=== PATIENT | female | born 1940 | race Caucasian/White ===

== ENCOUNTER 2020-08-20 12:27 | Inpatient (IN) | payer MEDICARE ==
[~2020-08-20] VITALS: Ht 160 cm; Wt 77.6 kg
--- NOTE | 2020-08-20 12:27 | NUR ---
ANICETO ROBLES FROM THE [facility] C/O SI " PER REPORT PT STATED SHE WANTS TO KILL HER SELF" PT ON 5150 HOLD BY [employer]. PT IS AAOX3, NOT IN RESPIRATORY DISTRESS, V/S STABLE, KEPT RESTED AND COMFORTABLE. SITTER AT BEDSIDE. WILL CONTINUE TO MONITOR.
--- NOTE | 2020-08-20 12:49 | NUR ---
PT SEEN AND EXAMINED BY .
--- NOTE | 2020-08-20 12:55 | NUR ---
ER PHLEB AT BEDSIDE FOR BLOOD DRAW.
[2020-08-20 13:08] LABS: BASOPHILS # (AUTO) 0.1 /CMM (0.0-0.2); BASOPHILS % (AUTO) 0.9 % (0.0-2.0); EOSINOPHILS % (AUTO) 2.8 % (0.0-6.0); HEMATOCRIT 39 % (33-45); HEMOGLOBIN 12.8 g/dL (11.5-14.8); LYMPHOCYTES # (AUTO) 1.8 /CMM (0.8-4.8); LYMPHOCYTES % (AUTO) 27.4 % (20.0-44.0); MEAN CORPUSCULAR HGB CONC 33 g/dl (31.0-36.0); MEAN CORPUSCULAR VOLUME 94 fL (82-100); MONOCYTES # (AUTO) 0.4 /CMM (0.1-1.30); MONOCYTES % (AUTO) 6.6 % (2.0-12.0); NEUTROPHILS # (AUTO) 4.2 /CMM (1.8-8.9); NEUTROPHILS % (AUTO) 62.3 % (43.0-81.0); PLATELET COUNT (AUTO) 278 /CMM (150-450); RED BLOOD CELL COUNT(AUTO) 4.13 MIL/uL (4.0-5.2); WHITE BLOOD COUNT (AUTO) 6.7 K/uL (4.3-11.0)
--- NOTE | 2020-08-20 13:10 | NUR ---
INSURANCE CLEARED BY [facility] FOR [facility] ADMISSION
[2020-08-20 13:15] LABS: CALCIUM, SERUM 8.8 mg/dL (8.5-10.1); CARBON DIOXIDE 30 mmol/L (21-32); CHLORIDE 105 mmol/L (98-107); CREATININE 0.7 mg/dL (0.6-1.3); GLUCOSE 104 mg/dL (74-106); POTASSIUM 3.8 mmol/L (3.5-5.1); SODIUM SERUM 141 mmol/L (136-145); UREA NITROGEN, BLOOD 14 mg/dL (7-18)
[2020-08-20 13:21] LABS: ACETAMINOPHEN 0 ug/ml (10-30); ALANINE AMINOTRANSFERASE 21 U/L (12-78); ALBUMIN 3.7 g/dL (3.4-5.0); ALCOHOL, BLOOD < 3 mg/dL (0-0); ALKALINE PHOSPHATASE 75 U/L (46-116); ASPARTATE AMINOTRANSFERASE 17 U/L (15-37); BILIRUBIN,DIRECT 0.2 mg/dL (0.0-0.2); BILIRUBIN,TOTAL 0.9 mg/dL (0.2-1.0); TOTAL PROTEIN, SERUM 6.9 g/dL (6.4-8.2)
[2020-08-20] MEDS ORDERED: LIDOCAINE PATCH TD (13:29)
[2020-08-20] MEDS ORDERED: ACET325T53 PO (13:29)
[2020-08-20] MEDS ORDERED: BISA10SU11 RC (13:29)
[2020-08-20] MEDS ORDERED: FLUT10.62 IH (13:29)
[2020-08-20] MEDS ORDERED: MAGN400O6 PO (13:29)
[2020-08-20] MEDS ORDERED: FLUT16SP NS (13:29)
[2020-08-20] MEDS ORDERED: LOPE2TAB25 PO (13:29)
[2020-08-20] MEDS ORDERED: CALC355O18 PO (13:29)
[2020-08-20 13:47] LABS: BILIRUBIN,URINE Negative (NEGATIVE); COLOR,URINE YELLOW (YELLOW); LEUKOCYTE ESTERASE ,URINE Negative (NEGATIVE); NITRITE, URINE Negative (NEGATIVE); PROTEIN,URINE Negative (NEGATIVE); UGLUCOSE Negative (NEGATIVE); UROBILINOGEN,URINE 0.2 EU/dL (0.2)
[2020-08-20 13:48] LABS: WBC,URINE 0-2 /HPF (0-3)
[2020-08-20 13:49] LABS: BACTERIA,URINE Few /HPF (None Seen); SQUAMOUS EPITHELIAL CELL,UR Few /HPF (None Seen)
--- NOTE | 2020-08-20 14:07 | NUR ---
COVID SPECIMEN OBTAINED AND SENT TO LAB.
--- NOTE | 2020-08-20 15:30 | NUR ---
REPORT GIVEN TO OLINDA HUGHES OF [facility] FOR [facility].
--- NOTE | 2020-08-20 15:50 | NUR ---
TELEVISION REPORTER NOTE- PT ADMITTED 5150 DTS BY [employer]. HOLD PLACED ON PT AFTER STATING SHE WANTED TO KILL SELF W KNIFE AT [facility]. ON FACE TO FACE ASSESSMENT, PT ALERT ORIENTED TO PERSON PLACE PURPOSE THOUGH MINIMIZES AND PRESENTS WITH INCREASING CONFUSION AND AGITATION EVALUATION CONTINUES. PT STATING "I'M IN ROOM 319. I'M NOT PAYING FOR TWO ROOMS. TAKE ME TO MY OTHER ROOM." EXPLAINED SHES ON HOLD AT FACILITY . PT REFUSES TO CALM. STATES "I'M NOT SUICIDAL' FORGETFUL, REPEATING HERSELF, CONFUSED. PT TRIED DOORS ATTEMPTING TO LEAVE UNIT. DENIES SI HI AH VH. PT ALLERGIC TO SULFA AND CODEINE. VS BP- 156/71, HR- 70, RR- 18, T- 97.9, SATS 98% RA. ACCU CHECK 106. PT REFUSED MRSA SWAB. SKIN INTACT . MEDICAL HX- BILAT KNEE REPLACEMENTS. VACC STATUS -STATES "I DONT KNOW" MD NOTIFIED OF ADMISSION, ORDERS RECEIVED AND COMPLIED WITH. ORIENTATION TO UNIT. CALMED PT AND ASSISTED.
[2020-08-20 16:00] VITALS: BP 156/71
[2020-08-20] MEDS ORDERED: MAG HYDROX/AL HYDROX/SIMETH 30 ML UDC PO PRN (16:30)
[2020-08-20] MEDS ORDERED: LORAZEPAM 0.5 MG TABLET PO PRN ×2 (16:30→21:30)
[2020-08-20] MEDS ORDERED: MAGNESIUM HYDROXIDE 30 ML UDC PO PRN ×2 (16:30→19:00)
[2020-08-20] MEDS ORDERED: BLOOD SUGAR DIAGNOSTIC 1 EACH STRIP IN ONE (16:30)
[2020-08-20] MEDS ORDERED: ACETAMINOPHEN 325 MG TABLET PO PRN ×2 (16:30→19:00)
--- NOTE | 2020-08-20 18:01 | NUR ---
RN NOTE- RECEIVED CALL FROM COLUMBA PRAKASH [phone] FROM [facility]. STATED PT HAS DX OF DEMENTIA BUT IS NOT ON ANY RX. ALSO FAXING CURRENT RX LIST.
[2020-08-20] MEDS ORDERED: BISACODYL SUPP (10 MG) 10 MG/SUPP.RECT SUPP.RECT RC PRN (19:00)
--- NOTE | 2020-08-20 19:56 | NUR ---
RN NOTE: ANXIETY PT C/O FEELING ANXIOUS. REQUESTING ATIVAN. ATIVAN 1MG PO PRN ADMINISTERED.
[2020-08-20 20:00] VITALS: BP 130/78
[2020-08-21 06:48] LABS: CHOLESTEROL 180 mg/dL (<200); HDL CHOLESTEROL 56 mg/dL (40-60); LDL 113 mg/dL (0-99); TRIGLYCERIDES 53 mg/dL (30-150)
[2020-08-21 06:52] LABS: ALBUMIN 3.3 g/dL (3.4-5.0); CALCIUM, SERUM 8.3 mg/dL (8.5-10.1); CREATININE 0.6 mg/dL (0.6-1.3); POTASSIUM 3.8 mmol/L (3.5-5.1); TOTAL PROTEIN, SERUM 6.2 g/dL (6.4-8.2)
[2020-08-21 08:00] VITALS: BP 141/80
[2020-08-21] MEDS: FLUTICASONE 110MCG 1 EA INHALER IH SCH ×2 (08:23→16:11)
--- NOTE | 2020-08-21 12:32 | NUR ---
Facility Contact: RON received a call from Meredith ([phone]), from [facility] and she stated that she would like to be informed a few days before the pts discharge so that the pt can be assessed and a physicians report can be filled out before the pt can return. RON stated that she will keep her updated.
[2020-08-21] MEDS ORDERED: LORAZEPAM 0.5 MG TABLET PO PRN (13:30)
--- NOTE | 2020-08-21 15:32 | NUR ---
RON called [facility] [phone] and requested POA paperwork to be faxed to SW. Facility to follow up and RON will file paperwork in pt.'s chart upon receiving it.
[2020-08-21 16:00] VITALS: BP 145/75
[2020-08-21] MEDS: risperiDONE 1 MG TABLET PO SCH (16:11)
--- NOTE | 2020-08-21 16:31 | NUR ---
Point of Contact: The SW called the pt.s DPOA, Heydi Montenegro [phone] to gather collateral information. Per Heydi, the pt. has Hx. of Dementia, hoarding, and recently moved to [facility] [phone] from her home in [place].
--- NOTE | 2020-08-21 16:32 | NUR ---
Initial discharge plan: The pt. currently resides at [facility] [[address] [place] [address]; ]. Per DPOA, she would like the pt. to return there once ready for discharge. The pt. is uncertain if she would like to return. RON will continue to collaborate with IDT to ensure safe & proper discharge planning.
[2020-08-21 20:27] VITALS: BP 140/75
[2020-08-22 08:00] VITALS: BP 156/88
--- NOTE | 2020-08-22 08:15 | NUR ---
RN note: Pt received alert awake oriented x 2 with episodes of confusion forgetfulness. No breathing distress noted. Denies pain & discomfort. Denies SI/HI. Ambulatory, steady gait. Encourage to call for assistance. Continue with plan of care.
[2020-08-22] MEDS: risperiDONE 1 MG TABLET PO SCH ×2 (08:37→16:44)
[2020-08-22] MEDS: FLUTICASONE 110MCG 1 EA INHALER IH SCH ×2 (08:47→16:44)
[2020-08-22 16:00] VITALS: BP 108/65
[2020-08-22 20:00] VITALS: BP 138/66
[2020-08-23 00:10] VITALS: BP 138/66
[2020-08-23] MEDS: ZOLPIDEM TARTRATE 10 MG TABLET PO PRN ×2 (00:30→22:05)
--- NOTE | 2020-08-23 00:32 | NUR ---
[facility] RN NOTES PATIENT REPORTS OF FEELING TIRED AND WANTING TO SLEEP BUT SHE CANNOT. I OFFERED IF SHE WANTS AMBIEN, PATIENT AGREED. GIVEN AMBIEN 5 MG PRN. WILL REASSESS.
--- NOTE | 2020-08-23 06:41 | NUR ---
[facility] RN CLOSING PATIENT SLEPT INTERMITTENTLY. PATIENT IN THE ROOM SITTING AT ON THE CHAIR KARINA. ALERT AND ORIENTED TO NAME. SERIES OF FORGETFULNESS. ALWAYS HAVE TO RE-DIRECT PATIENT. COOPERATIVE. NO S/S OF DISTRESS. NO C/O PAIN. SAFETY KEPT IN PLACE THE WHOLE SHIFT: BED IN LOWEST, LOCKED POSITION. NO SIGNIFICANT CHANGE SINCE LAST SHIFT. WILL ENDORSE CARE TO MORNING SHIFT NURSE.
[2020-08-23 08:00] VITALS: BP 144/73
[2020-08-23] MEDS: risperiDONE 1 MG TABLET PO SCH ×2 (08:41→18:16)
[2020-08-23] MEDS: FLUTICASONE 110MCG 1 EA INHALER IH SCH ×2 (08:43→17:00)
[2020-08-23 16:14] VITALS: BP 133/83
[2020-08-23 20:00] VITALS: BP 142/71
[2020-08-23 20:40] VITALS: BP 142/71
--- NOTE | 2020-08-23 22:09 | NUR ---
RN NOTE: INSOMNIA PATIENT VERBALIZED THAT SHE IS UNABLE TO SLEEP & REQUESTED TO TAKE SLEEPING MEDICINE. PRN AMBIEN 5 MG PO ADMINISTERED. WILL CONTINUE TO MONITOR.
[2020-08-24 08:00] VITALS: BP 144/72
[2020-08-24] MEDS: FLUTICASONE 110MCG 1 EA INHALER IH SCH ×2 (08:37→16:17)
[2020-08-24] MEDS: risperiDONE 1 MG TABLET PO SCH ×2 (08:37→16:16)
[2020-08-24 16:00] VITALS: BP 144/76
[2020-08-24 20:18] VITALS: BP 112/57
[2020-08-25 08:00] VITALS: BP_SYST 138; BP_SYST 140; BP_DIAS 55; BP_DIAS 70
[2020-08-25] MEDS: risperiDONE 1 MG TABLET PO SCH ×2 (08:34→17:13)
[2020-08-25] MEDS: FLUTICASONE 110MCG 1 EA INHALER IH SCH ×2 (08:34→17:21)
--- NOTE | 2020-08-25 11:53 | NUR ---
Facility Contact: RON received a call from Meredith ([phone]), from [facility], and RON stated that the pt is going to be discharged around /Monday. She stated that she is going to fax a physicians report and will come assess the pt on .
--- NOTE | 2020-08-25 11:54 | NUR ---
DPOA Contact: RON called the pt.s DPOA, Heydi Montenegro ([phone]), and informed her that the pt is going to be discharged on /Monday and that the SW spoke to the facility and they are going to assess her on .
[2020-08-25 16:00] VITALS: BP 156/79
[2020-08-26 08:00] VITALS: BP 143/80
[2020-08-26] MEDS: risperiDONE 1 MG TABLET PO SCH ×2 (08:43→16:39)
[2020-08-26] MEDS: FLUTICASONE 110MCG 1 EA INHALER IH SCH ×2 (09:17→16:39)
[2020-08-26 16:00] VITALS: BP 138/79
--- NOTE | 2020-08-26 16:30 | NUR ---
Facility Contact: RON met with Meredith ([phone]), from [facility], after she assessed the pt. She stated that the pt is accepted back to their community and they will just need the Physicians Report to be completed.
[2020-08-26 20:00] VITALS: BP 155/79
[2020-08-26] MEDS: ZOLPIDEM TARTRATE 10 MG TABLET PO PRN (21:27)
[2020-08-27 08:00] VITALS: BP_SYST 147; BP_SYST 94; BP_DIAS 61; BP_DIAS 71
[2020-08-27] MEDS: risperiDONE 1 MG TABLET PO SCH (08:54)
[2020-08-27] MEDS: FLUTICASONE 110MCG 1 EA INHALER IH SCH (08:55)
--- NOTE | 2020-08-27 09:51 | NUR ---
DPOA Contact: RON called the pt.s DPOA, Heydi Montenegro ([phone]), and informed her that the pt was assessed yesterday and will be accepted back to the pts previous placement today. RON stated that she will order a non emergency transport for the pt and the DPOA is aware that she will have to pay.
--- NOTE | 2020-08-27 11:19 | NUR ---
Facility Contact: RON called Meredith ([phone]), from [facility], and informed her that the pt is going to be discharged today and will arrive around 5pm. She asked that the SW fax the physicians report as well as the pts prescriptions so her medications can be ready.
--- NOTE | 2020-08-27 11:19 | NUR ---
Facility Contact: RON faxed a physicians report to [facility] with attn to Meredith to the fax number: [phone].
--- NOTE | 2020-08-27 12:45 | NUR ---
Discharge Note: Pt will be discharged to the [facility] located at [address] [place] [address]; . Pt will be transported via [facility] around 4pm. Pts DPOA, Heydi ([phone]), was made aware of the discharge. Upon discharge, the pt appears to be in a euthymic mood and appears to present with a calm affect. Pt denies both suicidal and homicidal ideation as well as auditory and visual hallucinations. Pt appears to be alert and oriented x3 (time, place, self). Pt appears to be well groomed and appears to be ambulatory with an unsteady gait. Pt will be under the care of psychiatrist, Dr Salbador Tesfaye, located at [address], [place] [address]; . Pt will be under the care of oil and gas superintendent, Dr. Mauro So, located at [address] [facility] [address] [address]; . Pts multidisciplinary exit care form was done, printed, signed, and given to the patient.
--- NOTE | 2020-08-27 14:10 | NUR ---
RN-DISCHARGE NOTES DR. PAIGE GAVE DISCHARGE ORDER. PATIENT WAS DISCHARGE TO [facility] IN STABLE CONDITION. PATIENT LEFT THE UNIT IN STABLE CONDITION A/O X 2-3. AMBULATORY WITH STEADY GAIT. DISCHARGE MEDICATIONS HANDED OVER TO EMT TO BE GIVEN TO THE FACILITY. PATIENT DID NOT VERBALIZE SI/HI,DENIES VISUAL/AUDITORY HALLUCINATIONS AT THE TIME OF DISCHARGE. PATIENT PICKED UP VIA AMBULANCE IN A WHEELCHAIR ACCOMPANIED BY EMT PERSONNEL IN STABLE CONDITION. SKIN IS INTACT. ALL BELONGINGS WAS GIVEN BACK TO THE PATIENT INCLUDING MEDICATION RX TO BE GIVEN TO FACILITY MASK WAS PROVIDED. Addendum: 08/27/20 at 1823 by CHRISTIANO ZHOU RN DISREGARD ABOVE NOTES, WRONG ENTRY
--- NOTE | 2020-08-27 16:10 | NUR ---
RN-DISCHARGE NOTES DR. PAIGE GAVE DISCHARGE ORDER. PATIENT WAS DISCHARGE TO [facility] IN STABLE CONDITION. PATIENT LEFT THE UNIT IN STABLE CONDITION A/O X 2-3. AMBULATORY WITH STEADY GAIT. DISCHARGE MEDICATIONS HANDED OVER TO EMT TO BE GIVEN TO THE FACILITY. PATIENT DID NOT VERBALIZE SI/HI,DENIES VISUAL/AUDITORY HALLUCINATIONS AT THE TIME OF DISCHARGE. PATIENT PICKED UP VIA AMBULANCE IN A WHEELCHAIR ACCOMPANIED BY EMT PERSONNEL IN STABLE CONDITION. SKIN IS INTACT. ALL BELONGINGS WAS GIVEN BACK TO THE PATIENT INCLUDING MEDICATION RX TO BE GIVEN TO FACILITY MASK WAS PROVIDED.
== END 2020-08-27 16:10 | DRG 885 ==
LOC: ER 12:44 → GPS 15:39
PROVIDERS: ADMIT Psychiatry & Neurology Psychiatry
DX: F29 Unspecified psychosis not due to a substance or known physiological condition (principal); E43 Unspecified severe protein-calorie malnutrition; R45.851 Suicidal ideations; F03.91 Unspecified dementia, unspecified severity, with behavioral disturbance; Z96.653 Presence of artificial knee joint, bilateral; Z88.5 Allergy status to narcotic agent; Z88.2 Allergy status to sulfonamides; Z79.899 Other long term (current) drug therapy; F32.9 Major depressive disorder, single episode, unspecified; R53.1 Weakness; R27.8 Other lack of coordination; Z91.81 History of falling; F41.9 Anxiety disorder, unspecified
CPT/HCPCS: 36415; 71045-TC; 80048-TC; 80053-TC; 80061-TC; 80076-TC; 81001; 82962-TC; 85025-TC; 87081-TC; G0480